=== PATIENT | female | born 1960 | race Caucasian/White ===

== ENCOUNTER 2017-02-16 01:25 | Emergency (ER) | payer OTHER ==
[~2017-02-16] VITALS: Ht 167.6 cm; Wt 72.6 kg
[2017-02-16] MEDS ORDERED: MOBIC15 MG PO (01:38)
[2017-02-16] MEDS ORDERED: NORCO 5-325 TA1 EACH PO (01:39)
== END 2017-02-16 02:35 | disposition home or self-care (01) ==
LOC: ED 01:25
PROC: 2W3DX1Z Immobilization of Left Lower Arm using Splint (ICD-10-PCS; principal; 2017-02-16)
DX: S52.532A Colles' fracture of left radius, initial encounter for closed fracture (principal); F17.200 Nicotine dependence, unspecified, uncomplicated; W10.9XXA Fall (on) (from) unspecified stairs and steps, initial encounter
CPT/HCPCS: 29125; 73110; 99283

== ENCOUNTER 2018-05-24 06:45 | Day surgery (SDC) | payer OTHER ==
--- NOTE | 2018-05-11 13:09 | NUR ---
PATIENT HERE TODAY FOR PREADMISSION APPOINTMENT. SHE IS SCHEDULED TO HAVE A RIGHT TOTAL KNEE REPLACEMENT ON 05/24/18. SHE LIVES IN [place] BUT WILL BE STAYING WITH HER SISTER SYLVESTER FOR A FEW DAYS AFTER SURGERY HERE IN [place]. AT HER HOME IN [place] SHE HAS 3 STEPS INTO THE HOME AND NO STEPS INSIDE THE HOME. SHE HAS A [employer]OT TUB AND HAS CONCERNS ABOUT SHOWERING ONCE SHE GOES HOME. HER DAUGHTER AND A SON LIVE NEAR SO SHE MAY USE A SHOWER AT THEIR HOME. SHE HAS A WALKER TO BORROW AND WILL LOOK INTO THE SHOWER SITUATION ONCE SHE GETS HOME BEFORE SURGERY. SHE WOULD LIKE PHYSICAL THERAPY SET UP AT THE HOSPITAL IN AND WILL CONTACT THEM BEFORE SURGERY. THIS INFORMATION WILL BE SENT TO DR EGAN OFFICE AND CASE MANAGEMENT FOR FUTHER FOLLOW UP.
[~2018-05-24] VITALS: Ht 167.6 cm; Wt 78.5 kg
[~2018-05-24 06:45] MED LIST: MOBIC15 MG PO; NORCO 5-325 TA1 EACH PO; TYLENOL EXTRA500 MG PO; WOMEN'S DAILY1 EACH PO
--- NOTE | 2018-05-24 10:31 | NUR ---
PT ALERT, ORIENTED AND PLEASANT. PT EXPRESSED CONCERNS ABOUT THIS SURGERY, BECAUSE SHE LIVES ALONE NOW. SHE DOES HAVE FAMILY NEAR-BY. HER SON IS TO CHECK IN ON PT DURING HIS BREAK AT WORK. PT EXPRESSED SOME APPREHENSIONS ABOUT TODAY AND WE SPENT TIME DEBRIEFING AND HELPING PT THROUGH. PT REQUESTED PRAYER, WILL FOLLOW NEEDED. SHE ALSO MENTIONED THAT HER SISTER WILL BE CHECKING IN ON HER AFTER WORK TODAY
--- NOTE | 2018-05-24 11:54 | NUR ---
05/24/18 1154 [address] SN 1145- PT ARRIVES TO PACU. RESPIRATIONS EVEN AND NON LABORED. PT ON 6 LITERS VIA MASK. O2 SATS IN HIGH 90'S. PT DENIES PAIN, NAUSEA, AND DIZZINESS AT THIS TIME. PT RESTING IN SEMI FOWLERS. ON Q PUMP TO RIGHT KNEE INFUSING AT 2MLS PER HOUR WITH CLAMP REMOVED. JOSUE DRESSING IN PLACE WITH GREEN LIGHT FLASHING. 1146- ICE PACK APPLIED TO RIGHT KNEE. PT TOLERATING WELL. PT JUDD BANDAGE IN BETWEEN SKIN AND ICE PACK.
--- NOTE | 2018-05-24 12:25 | NUR ---
PT TO ROOM 117 AT THIS TIME. PT ALERT AND ORIENTED ON ROOM AIR REPORTS NO APIN OR NAUSEA.
--- NOTE | 2018-05-24 13:29 | NUR ---
PT SITTING UPRIGHT IN BED TALKING TO FRIEND AND EATING LUNCH. DENIES NAUSEA OR PAIN. STATES SHE FEELS GREAT. TRANX ACID RUNNING. SL AFTER. HAS YET TO VOID. EDUCATED ON JOSUE, ON Q AND FOLLOW UP APPTS.
--- NOTE | 2018-05-24 13:40 | NUR ---
PATIENT IN BED, FAMILY IN ROOM. FRESH WATER GIVEN. RN IN ROOM. CALL LIGHT IN REACH. NO FURTHER NEEDS AT THIS TIME.
--- NOTE | 2018-05-24 14:25 | NUR ---
PT'S SISTER HAD JUST LEFT PT'S RM. SHE MENTIONED THAT SHE HAD JUST FINISHED LUNCH AND WAS FALLING ASLEEP. PT WILL BE DC'D TO SISTER. WILL FOLLOW NEEDED
--- NOTE | 2018-05-24 14:52 | NUR ---
Medications reconciled with patient.
--- NOTE | 2018-05-24 15:00 | NUR ---
ALL PACU CHARTING COMPLETED BY LENORE MICHAEL, GLOBAL DIRECTOR AIR AND CLIMATE CHANGE WAS REVIEWED BY THIS RN.
--- NOTE | 2018-05-24 15:01 | NUR ---
PT STARTING TO FEEL SOME DISCOMFORT IN THE BACK OF HER KNEE. ADMINISTERED SCHEDULED GABAPENTIN.
--- NOTE | 2018-05-24 15:02 | OR ---
[facility] [address] [place], [place] [address] Signed DATE OF OPERATION: 05/24/2018 SURGEON: Suraj Springer MD PREOPERATIVE DIAGNOSIS: Degenerative joint disease, right knee. POSTOPERATIVE DIAGNOSIS: Degenerative joint disease, right knee. PROCEDURE PERFORMED: Right total knee arthroplasty with computer navigation. COMPUTER HARDWARE TECHNICIAN: Merna Wilson PA-C. Merna was present critical for all portions of procedure. BLOOD LOSS: 150 mL. TOURNIQUET TIME: Zero. IMPLANTS: Manjeet Triathlon size 4 with 11 mm insert and a 29 mm patella. BRIEF HISTORY: Tati is a 58-year-old female with progressive worsening of osteoarthritis and a valgus patter. She had about 10-11 degrees of valgus and significant lateral pain. Risks and benefits of operative treatment were discussed with her and she elected to proceed. DESCRIPTION OF PROCEDURE: Once the consent was obtained, she was taken to the operating room. After adequate anesthesia, she was placed on operating table with all downside pressure points well padded. The right leg was prepped and draped in a standard sterile fashion. The knee was approached through an anterior incision measuring 6 inches, taken through skin and subcutaneous tissue. Median parapatellar arthrotomy was performed and the infrapatellar fat pad was excised. The knee was flexed. The infrapatellar fat pad was removed and Electronically Signed By: SURAJ SPRINGER MD 05/24/18 1502 PATIENT NAME: TATI COLLINS OPERATIVE REPORT DATE OF : 56 REPORT #: [id number] PHYSICIAN: SURAJ SPRINGER MD PCP: RODNEY VILLALOBOS MD REPORT IS CONFIDENTIAL AND NOT TO BE RELEASED WITHOUT AUTHORIZATION [facility] [address] [place], [place] [address] Signed the MCL was elevated as a sleeve around the posteromedial corner. The PCL was found to be intact. The navigation guide was pinned to the distal femur. The femur was registered with the computer. The distal femoral cutting guide was then pinned into position and distal femoral cut was made. Almost no cut was taken off the distal lateral femoral condyle, but we did take about a 1 mm or 2 mm. The femur was sized to 4 and an AP cutting block was pinned in line with epicondylar axis and the anterior, posterior, and chamfer cuts were made. The osteophytes were removed as we went. Attention was then turned to proximal tibia, the navigation guide was pinned again to the proximal tibia. The tibia was registered with the computer. The cutting block was then pinned in alignment taking 2 mm off the most involved posterior lateral corner. The bone cut was made with care taken to protect the patellar tendon. Her bone was noted to be fairly soft throughout the procedure. The meniscal remnants removed. It was noted at this time that the popliteus was ruptured off the femur and was lying in the back of the knee. This appeared to be old. The posterior release was performed. No osteophytes were found posteriorly. The flexion extension gaps were sized and found to be symmetric at 11 mm. The trials were then positioned. Knee was taken through range of motion and found to be quite stable. The patella was cut, sized and drilled for 29 patella. The distal femoral drill holes were made and keel punch was used to finish the proximal tibia. All bone surfaces were pulse lavaged and packed with hydrogen peroxide-soaked sponge. The cement was mixed and reached proper consistency, placed all implants and all bone surfaces. Tibia was impacted in position first and any overflow was removed. The polyethylene was snapped into position and the femur was impacted and again any overflow was removed. The knee was extended and nicely loaded. The patella was clamped into position and any remaining overflow was removed. The cement was allowed to harden. Once it hardened sufficiently, the knee was flexed and remaining cement was removed using osteotomes. The knee was pulse lavaged at intervals using antibiotic irrigation and Irrisept. The On-Q pain pump was then placed from the suprapatellar pouch into the adductor canal, safe atraumatic and traumatic technique was undertaken. The arthrotomy was then closed using #0 Stratafix in the subcutaneous tissue, and Dermabond mesh for the skin. It was dressed with a JOSUE wound VAC dressing and Ryley wrap. She tolerated the procedure well. All sponge, needle, and instrument counts were correct. Suraj Springer MD BA/MODL /[id number] Electronically Signed By: SURAJ SPRINGER MD 05/24/18 1502 PATIENT NAME: TATI COLLINS OPERATIVE REPORT DATE OF : 56 REPORT #: [id number] PHYSICIAN: SURAJ SPRINGER MD PCP: RODNEY VILLALOBOS MD REPORT IS CONFIDENTIAL AND NOT TO BE RELEASED WITHOUT AUTHORIZATION [address] [address] Signed Copies: ~ Electronically Signed By: SURAJ SPRINGER MD 05/24/18 1502 PATIENT NAME: TATI COLLINS OPERATIVE REPORT DATE OF : 56 REPORT #: [id number] PHYSICIAN: SURAJ SPRINGER MD PCP: RODNEY VILLALOBOS MD REPORT IS CONFIDENTIAL AND NOT TO BE RELEASED WITHOUT AUTHORIZATION
--- NOTE | 2018-05-24 15:39 | NUR ---
CALLED DUE TO PT INCREASE IN PAIN WITH PHYSICAL THERAPY, GAVE ORDER TO INCREASE ON Q PUMP FROM 2ML/HR TO 6ML/HR. AT THIS TIME
--- NOTE | 2018-05-24 18:11 | NUR ---
PT UP TO RESTROOM TO TRY ONE MORE TIME TO VOID. UNABLE, BLADDER SCANNED FOR 800ML. PLACED GOVEA WITH GOOD URINE RETURN. TOLERATED WELL. FAMILY IN ROOM.
--- NOTE | 2018-05-24 18:32 | NUR ---
PATIENT IN BED TALKING WITH FAMILY IN ROOM. PATIENT COMPLAINS OF PAIN STARTING TO COME BACK, RN NOTIFIED. CALL LIGHT IN REACH. NO FURTHER NEEDS AT THIS TIME.
--- NOTE | 2018-05-24 19:25 | NUR ---
BEDSIDE REPORT RECEIVED FROM OFFGOING RN. PT RESTING IN BED. SPECIAL SYSTEMS TECHNICIAN'S IN ROOM. PT REPORTS PAIN JUST "ANNOYING" AT THIS TIME. RATES 6/. DENIES NEEDS. CALL LIGHT IN REACH.
--- NOTE | 2018-05-24 21:41 | NUR ---
PT ASSESSMENT COMPLETE. PT RATES PAIN /10 TO R KNEE. PRN OXYCODONE ADMINISTERED, NEW ICE BAGS PROVIDED. PT DENIES NAUSEA OR SOB AT THIS TIME. GOVEA CATH DRAINING CLEAR YELLOW URINE. PIC DRESSING INTACT, GREEN "OK" LIGHT FLASHING ON JOSUE BOX. SMALL AMOUNT OF SHADOWING PRESENT TO DRESSING. UNCHANGED FROM PREVIOUS. CMS INTACT. TEDS, SCDS, HEEL PROTECTORS IN PLACE BILATERALLY. PT DENIES FURTHER NEEDS AT THIS TIME. CALL LIGHT IN REACH. POC FOR THIS SHIFT DISCUSSED WITH PT. PT DENIES QUESTIONS.
--- NOTE | 2018-05-24 22:53 | NUR ---
V/S AND I&O DONE AND CHARTED.
--- NOTE | 2018-05-24 23:39 | NUR ---
pt resting in bed with eyes closed, snoring audibly. pt wakes easily to touch and name being called. sao2 95%. pt rates pain 3/10. states it is much better. pt denies further needs at this time. call light in reach.
--- NOTE | 2018-05-25 04:08 | NUR ---
PT ASSESSMENT COMPLETE. PT RATES PAIN 2-3/10, STATES THAT PAIN IS WELL CONTROLLED AT THIS TIME. PT DENIES NAUSEA OR SOB. CPOX IN PLACE, SA02 95%. GOVEA CATH DRAINING CLEAR YELLOW URINE. JOSUE DRESSING TO R KNEE D/I. SMALL AMOUNT OF RED DRAINAGE PRESENT TO DRESSING WITH SLIGHT INCREASE FROM LAST ASSESSMENT. GREEN "OK" LIGHT FLASHING ON JOSUE BOX. CMS INTACT. TEDS, SCD'S, AND HEEL PROTECTORS IN PLACE BILATERALLY. ICE TO R KNEE. PT DENIES NUMBNESS OR TINGLING AT THIS TIME. PT DENIES FURTHER NEEDS. CALL LIGHT IN REACH.
--- NOTE | 2018-05-25 06:38 | NUR ---
pt resting in bed with eyes closed. pt wakes easily to voice. pt states that pain is well controlled, rates 2-3/10. toledo cath removed. pt tolerated well. pt denies further needs at this time. call light in reach.
--- NOTE | 2018-05-25 08:18 | NUR ---
OXYCODONE 10MG PO ADMIN FOR REPORTS OF 7/10 RIGHT KNEE PAIN.
--- NOTE | 2018-05-25 08:55 | NUR ---
PATIENT UP WORKING WITH PT.
--- NOTE | 2018-05-25 09:24 | NUR ---
CALLED TO REPORT, PT WORKED WITH PHYSICAL THERAPY AFTER AMBULATED TWO LAPS THEN INTO PHYSICAL THERAPY ROOM AT THIS POINT SHE FELT DIZZY, COOL, CLAMMY, GORAN REPORTED SHE LOOKED PALE. SHE FELT NAUSEA. V/S TAKEN 74/43 BLOOD PRESSURE, HEART RATE 75, 98% OXYGEN SATURATION ON ROOM AIR, RR 20 BREATH PER MIN. NEW ORDERS OBTAINED.
--- NOTE | 2018-05-25 09:53 | NUR ---
PT SITTING IN BED AT THIS TIME, A&OX3. PT REPORTS "FEELING BETTER" AT THIS TIME. BOLUS OF LR STARTED PER DOC ORDER. PT LYING FLAT IN BED. PT HAS NO NEEDS, DENIES SOB AND CHEST PAIN. INSTRUCTED PT TO STAY IN BED FOR A LITTLE WHILE AND REST WHILE SHE HER BOLUS INFUSES; PT AGREES WITH PLAN OF CARE AND WOULD LIKE TO REST FOR NOW. PERSONAL SUPPLIES AND CALL LIGHT WITHIN REACH. NO NEEDS AT THIS TIME. CALL LIGHT WITHIN REACH.
--- NOTE | 2018-05-25 10:19 | NUR ---
PATIENT IN BED. FRESH WATER GIVEN. CALL LIGHT IN REACH. NO FURTHER NEEDS AT THIS TIME.
--- NOTE | 2018-05-25 10:43 | NUR ---
PT LYING IN BED AT THIS TIME, A&OX3. PT REPORTS FEELING WELL AT THIS TIME. BP IS IMPROVED. PT STILL DTV. BOLUS INFUSING STILL. WILL GET PT TO BATHROOM POST INFUSION. NO NEEDS AT THIS TIME. ENCOUARGED PT TO CALL STAFF IF NEEDED. PERSONAL SUPPLIES AND CALL LIGHT WITHIN REACH. NO NEEDS.
--- NOTE | 2018-05-25 12:29 | NUR ---
ADMIN ONE TAB OXYCODONE 5MG PO FOR REPORTS OF 6/10 RIGHT KNEE PAIN. PT VOIDED 300ML OF CLEAR YELLOW URINE. NO NEEDS AT THIS TIME. PERSONAL SUPPLIES AND CALL LIGHT WITHIN REACH.
--- NOTE | 2018-05-25 12:32 | NUR ---
PT SITTING IN BED WITH TV ON. SHE MENTIONED THAT SHE HAD A TOUGH AM INVOLVING P.T. PT MENTIONED THAT SHE WASN'T SURE ABOUT DC TODAY. PT REQUESTED PRAYER, WILL FOLLOW NEEDED
--- NOTE | 2018-05-25 14:16 | NUR ---
UPDATED ON PT STATUS. PT IS DOING WELL, V/S STABLE, PT HAS BEEN UP AND VOIDED WITH NO FURTHER NEGATIVE SYMPTOMS.
--- NOTE | 2018-05-25 14:35 | NUR ---
PATIENT SITTING UP IN BED TALKING ON PHONE. ICE PACKS GIVEN. FRESH WATER GIVEN. CALL LIGHT IN REACH. NO FURTHER NEEDS AT THIS TIME.
--- NOTE | 2018-05-25 18:20 | NUR ---
PATIENT UP TO BATHROOM AND BACK TO BED, 1PA FWW. FRESH WATER GIVEN. B/P HIGH, RN NOTIFIED, WILL CHECK AGAIN IN A FEW MINS. CALL LIGHT IN REACH. NO FURTHER NEEDS AT THIS TIME.
--- NOTE | 2018-05-25 18:32 | NUR ---
PT A&OX3. PT ON RA. TOLERATING REGULAR DIET. SL IV. VOIDING Q/S. OXYCODONE 5MG PO FOR PAIN. UP WITH PT TODAY DID WELL. PT DID HAVE AN EPISODE THIS AM, SHE WAS WORKING WITH PT AND BECAME DIZZY AND FELT "ODD", NEEDING TO SIT DOWN. BP DECREASED SBP HIGH 70'S, GOT BOLUS THEN SYMPTOMS RESOLVED SHORTLY AFTER. PT DOING WELL SINCE THIS AFTERNOON. ABLE TO GET UP AND WALK TO BR STANDBY ASSIST JUST FIN WITH WITH WALKER. BP RESOLVED. PT DOING WELL. TO D/C TMRW.
--- NOTE | 2018-05-25 19:15 | NUR ---
SHIFT REPORT RECEIVED. PATIENT RESTING IN BED. DENIES ANY PAIN AT THIS TIME. JOSUE DRESSING VISUALIZED, MODERATE AMOUNT OF DRAINAGE NOTED ON DISTAL HALF OF JOSUE. UNCHANGED FROM PREVIOUS ASSESSMENT ACCORDING TO DAY SHIFT RN.
--- NOTE | 2018-05-25 19:35 | NUR ---
ASSISTED PATIENT TO USE THE BATHROOM. PATIENT DID PM CARE. PATIENT IS BACK IN BED. ICE PACK X3 MADE NEW. ICE WATER REFILLED. SIDE TABLE AND CALL LIGHT WITHIN REACH.
--- NOTE | 2018-05-25 21:00 | NUR ---
PATIENT PROVIDED WITH EVENING MEDICATIONS. REPORTS PAIN /10. DENIES NEED FOR PRN PAIN MEDS. NO OTHER CONCERNS. TOLERATING REGULAR DIET. GOOD URINE OUTPUT. VS STABLE. NO DIZZINESS. CMS INTACT. MODERATE AMOUNT OF DRAINAGE NOTED ON DRESSING, UNCHANGED FROM START OF SHIFT. JOSUE AND ON-Q PUMP IN PLACE. SCDS/[facility], AND HEEL PROTECTORS IN USE. PATIENT UP TO THE BATHROOM. SBA W/FWW, TOLERATES WELL. DENIES ANY FURTHER NEEDS. BACK IN BED RESTING, CALL LIGHT IN REACH.
--- NOTE | 2018-05-25 22:25 | NUR ---
PATIENT REPORTS AN INCREASE IN PAIN TO 8/10. PRN OXY PROVIDED. ICE PACKS IN PLACE. PATIENT REPORTS PAIN A STEADY INCREASE IN THROBBING PAIN.
--- NOTE | 2018-05-26 00:59 | NUR ---
PATIENT WOKE EASILY WHEN RN ENTERED ROOM. REPORTS PAIN 07/19. SCHEDULED TORADOL PROVIDED. PATIENT UP TO THE BATHROOM. SBA W/FWW. PATIENT TOLERATED WELL. ASSISTED PATIENT BACK INTO BED. SCDS IN USE. PATIENT NOT WANTING TO USE HEEL PROTECTORS, THEY MAKE HER FEET TOO WARM. POSITIONED PATIENT FOR COMFORT. FRESH ICE PACKS PROVIDED. NO FURTHER NEEDS AT THIS TIME.
--- NOTE | 2018-05-26 03:57 | NUR ---
ANSWERED CALL LIGHT. 1 PA TO THE BATHROOM USING WALKER AND BACK TO BED. 3 ICE PACKS MADE.
--- NOTE | 2018-05-26 04:15 | NUR ---
PATIENT UP TO THE BATHROOM WITH BEN GODINEZ ASSIST. REPORTS PAIN INCREASED 07/19. PRN OXY PROVIDED. ICE PACKS IN PLACE. POSITIONED FOR COMFORT. CALL LIGHT IN REACH.
--- NOTE | 2018-05-26 05:58 | NUR ---
PATIENT REPORTS INCREASED PAIN, STATING "I FEEL LIKE IT'S TENSE AND I'M HAVING TROUBLE RELAXING IT AND IT'S MAKING IT WORSE". PRN AND SCHEDULED PAIN MEDS PROVIDED. JOSUE IN WORKING ORDER WITH ON-Q PUMP. DRAINAGE INCREASED SLIGHTLY FROM FIRST ASSESSMENT. POSITIONED PATIENT FOR COMFORT.
--- NOTE | 2018-05-26 06:15 | NUR ---
PATIENT SLEPT ON AND OFF, PRN PAIN MEDS X3. ICE PACKS TO AREA. SLIGHTLY INCREASED DRAINAGE ON JOSUE, ABOUT 75% OF DRESSING SATURATED. ON-Q AND JOSUE IN PLACE. SBA W/FWW. VS STABLE. URINE OUTPUT QS.
--- NOTE | 2018-05-26 07:43 | NUR ---
Pt up to the bathroom this am to void. Pt reports pain is tolerable this am. Back to bed. Ice placed over right knee. Personal supplies and call light within reach. No needs at this time. Call light within reach.
--- NOTE | 2018-05-26 09:00 | NUR ---
This RN assisted student nurse with medication administration today. During medication administration pt verbalizes that she quit smoking prior to this surgery for insurance purposes. Pt talks about nicotine cravings. Pt educated regarding the effects of nicotine on wound healing, cardiac and pulmonary function. Pt states her mother of COPD from smoking, further education given. Pt verbalizes an understanding of information presented, and the negative effects it would have on her health should she choose to start smoking again.
[2018-05-26] MEDS ORDERED: GABAPENTIN600 MG PO (09:23)
[2018-05-26] MEDS ORDERED: OXYCODONE HCL5 MG PO (09:23)
[2018-05-26] MEDS ORDERED: CELECOXIB200 MG PO (09:23)
[2018-05-26] MEDS ORDERED: SKELAXIN800 MG PO (09:23)
[2018-05-26] MEDS ORDERED: SENNA LAX8.6 MG PO (09:24)
[2018-05-26] MEDS ORDERED: HEALTHYLAX17 GM PO (09:24)
--- NOTE | 2018-05-26 10:49 | NUR ---
ASKED PATIENT IF SHE WOULD LIKE TO TAKE A SHOWER BEFORE SHE GOES HOME TODAY AND SHE SAID NO. SHE DID GET UP TO THE BATHROOM AND WASHED HER FACE AND BRUSHED HER TEETH. CHANGED HER BED LINENS. NOW SHE IS COMING BACK TO BED TO LAY DOWN AND TAKE A NAP.
--- NOTE | 2018-05-26 12:13 | NUR ---
ADMIN OXYCODONE 5MG PO FOR REPORTS OF 7/10 RIGHT KNEE PAIN. PERSONAL SUPPLIES AND CALL LIGHT WITHIN REACH.
--- NOTE | 2018-05-26 13:52 | NUR ---
PT UP AMBULATING WITH PChayaT. SHE STATED THAT SHE WAS GLAD SHE STAYED LAST NIGHT, IT WAS THE RIGHT THING FOR HER CARE. WILL GO TO SISTER'S HOME IN [facility], THEN TO HER HOME IN THIS WEEKEND. EXTRENDED A BLESSING, WILL FOLLOW NEEDED
--- NOTE | 2018-05-26 15:51 | EKG ---
[facility] [address] [facility] [place], [place] [address] Signed Normal sinus rhythm Normal ECG No previous ECGs available Confirmed by JACQUES CASEY DO ([id number]) on 05/26/2018 3:51:02 PM Electronically Signed By: JACQUES CASEY DO 05/26/18 1551 PATIENT NAME: AYESHA COLLINS Electrocardiogram DATE OF : 56 PHYSICIAN: JACQUES CASEY DO REPORT #: [id number] REPORT IS CONFIDENTIAL AND NOT TO BE RELEASED WITHOUT AUTHORIZATION
== END 2018-05-26 14:57 | disposition home or self-care (01) ==
LOC: OPS 06:45 → DS 06:45 → OPS 09:00 → EDSTATUS 09:00 → OPS 10:15 → MS 12:20 → OPS 12:27 → MS 12:28 → OPS 12:28
PROVIDERS: Specialist
PROC: 8E0YXBZ Computer Assisted Procedure of Lower Extremity (ICD-10-PCS; 2018-05-24)
PROC: 0SRC0J9 Replacement of Right Knee Joint with Synthetic Substitute, Cemented, Open Approach (ICD-10-PCS; principal; 2018-05-24 10:15)
DX: M17.11 Unilateral primary osteoarthritis, right knee (principal); Z79.899 Other long term (current) drug therapy
CPT/HCPCS: 01402; 36415; 51702; 51798; 64447; 64450; 76942; 80053; 85025; 93005; 93010; 97110; 97116; 97161; 97165; C1713; C1776; J0690; J1100; J1885; J2250; J2370; J2704; J2795; J3010; J7120